=== PATIENT | female | born 1960 | race Caucasian/White ===

== ENCOUNTER 2023-01-15 12:13 | Outpatient (OUT) | payer OTHER, SELFPAY ==
[2023-01-15 13:23] LABS: Thyroid Stimulating Hormone 0.034 uIU/mL (0.358-3.740)
== END 2023-01-15 12:14 | disposition home or self-care (01) ==
LOC: LAB 12:20
DX: E03.9 Hypothyroidism, unspecified (principal)
CPT/HCPCS: 36415; 84443